=== PATIENT | female | born 1965 | race Caucasian/White ===

== ENCOUNTER 2018-12-03 21:03 | Emergency (ER) | payer SELFPAY ==
[~2018-12-03] VITALS: Ht 149.9 cm; Wt 47.6 kg
--- NOTE | 2018-12-03 21:45 | NUR ---
PT BIBSELF C/C "HAVE NOSEBLEED X7HRS" -N/V -DIZZY -ACUTE DISTRESS. -TRAUMA. PT BLEW HER NOSE AND STARTED TO BLEED. PT AOX4. NAD NOTED. RESP EVEN AND UNLABORED. PT ON MONITOR IN BED 10. WILL CONTINUE TO MONITOR.
--- NOTE | 2018-12-03 21:48 | NUR ---
FAMILY AT BEDSIDE
--- NOTE | 2018-12-03 22:03 | NUR ---
PHLEB AT BEDSIDE FOR BLOOD DRAW
[2018-12-03 22:16] LABS: BASOPHILS % (AUTO) 0.6 % (0.0-2.0); EOSINOPHILS % (AUTO) 2.5 % (0.0-6.0); HEMATOCRIT 37 % (33-45); HEMOGLOBIN 12.2 g/dL (11.5-14.8); LYMPHOCYTES # (AUTO) 2.6 /CMM (0.8-4.8); LYMPHOCYTES % (AUTO) 41.8 % (20.0-44.0); MEAN CORPUSCULAR HGB CONC 33 g/dl (31.0-36.0); MEAN CORPUSCULAR VOLUME 95 fL (82-100); MONOCYTES # (AUTO) 0.5 /CMM (0.1-1.30); MONOCYTES % (AUTO) 7.3 % (2.0-12.0); NEUTROPHILS % (AUTO) 47.8 % (43.0-81.0); PLATELET COUNT (AUTO) 355 /CMM (150-450); RED BLOOD CELL COUNT(AUTO) 3.83 MIL/uL (4.0-5.2); WHITE BLOOD COUNT (AUTO) 6.3 K/uL (4.3-11.0)
[2018-12-03 22:27] LABS: CALCIUM, SERUM 9.1 mg/dL (8.5-10.1); CREATININE 0.7 mg/dL (0.6-1.3); POTASSIUM 3.5 mmol/L (3.5-5.1)
[2018-12-03 22:57] VITALS: BP 146/94
[2018-12-03] MEDS ORDERED: OXYMETAZOLINE HCL NASAL SPRAY 30 ML BOTTLE NS ONE ×2 (22:58→23:00)
[2018-12-03] MEDS ORDERED: SILVER NITRATE APPLICATOR 1 EA BOX ONE (23:01)
--- NOTE | 2018-12-04 00:03 | NUR ---
Patient discharged to home in stable condition. Written and verbal after care instructions given. Patient verbalizes understanding of instruction. PT AMBULATORY WITH STEADY GAIT.
== END 2018-12-04 00:05 | disposition home or self-care (01) ==
LOC: ER 21:08
DX: R04.0 Epistaxis (principal)
CPT/HCPCS: 30901; 36415; 80048; 85025; 85730; 99284; A4606

== ENCOUNTER 2018-12-20 16:25 | Emergency (ER) | payer BC ==
[~2018-12-20] VITALS: Ht 160 cm; Wt 64.4 kg
--- NOTE | 2018-12-20 16:40 | NUR ---
PT AMBULATED TO ER18 CH2 WITH A STEADY GAIT. PT IS C/O UPPER BACK PAIN THAT IS CHRONIC, BUT FLARING UP TODAY. PT TRIED ACCUPUNCTURE, MASSAGE, MOTRIN, CBD WITHOUT RELIEF.
[2018-12-20 17:08] VITALS: BP 154/78
--- NOTE | 2018-12-20 17:11 | NUR ---
PT WAS MOVED TO ER 16
[2018-12-20] MEDS ORDERED: HYDROCODONE/APAP 5/325MG 1 EACH TABLET PO ONE (17:30)
[2018-12-20] MEDS ORDERED: HYDROCODONE/APAP 5/325MG 1 EACH TABLET ONE (17:34)
== END 2018-12-20 17:38 | disposition home or self-care (01) ==
LOC: ER 16:26
DX: S29.012A Strain of muscle and tendon of back wall of thorax, initial encounter (principal); G89.29 Other chronic pain; X58.XXXA Exposure to other specified factors, initial encounter; Y93.89 Activity, other specified; Y92.89 Other specified places as the place of occurrence of the external cause; Y99.8 Other external cause status

== ENCOUNTER 2020-02-03 23:50 | Emergency (ER) | payer BC ==
[~2020-02-03] VITALS: Ht 149.9 cm; Wt 51.7 kg
[2020-02-03 23:54] VITALS: BP 148/81
--- NOTE | 2020-02-03 23:55 | NUR ---
PT BIBRA FROM HOME AFTER INGESTING ONE SHOT OF RUBBING ALCOHOL. PT DENIES SI/HI AT THIS TIME. PT AWAKE. AAOX4. VITAL SIGNS STABLE. RESPIRATIONS EVEN AND UNLABORED. SKIN INTACT. AMBULATORY WITH STEADY GAIT. NO ACUTE DISTRESS NOTED AT THIS TIME.
--- NOTE | 2020-02-04 00:15 | NUR ---
Elder du in [facility] - 02/04/20 at 0028 by PA MD AT THE BED SIDE
--- NOTE | 2020-02-04 00:18 | NUR ---
Patient eloped from facility. ER MD notified.
== END 2020-02-04 00:30 | disposition left against medical advice (07) ==
LOC: ER 23:51
DX: Z53.21 Procedure and treatment not carried out due to patient leaving prior to being seen by health care provider (principal); G43.909 Migraine, unspecified, not intractable, without status migrainosus; M19.90 Unspecified osteoarthritis, unspecified site

== ENCOUNTER 2020-02-04 12:07 | Emergency (ER) | payer BC ==
[~2020-02-04] VITALS: Ht 149.9 cm; Wt 48.1 kg
--- NOTE | 2020-02-04 12:26 | NUR ---
BIBS FROM HOME TO ER BED 16. AAOX4. NOT IN RESP DISTRESS. AMBULATORY. CAME IN FOR ACCIDENTAL INGESTION OF RUBBING ALCOHOL LAST NIGHT. SHE REPORTS THAT IT WAS ABOUT MUCH A SHOT GLASS. PER PT, SHE HAVE A SMALL CUP OF RUBBING ALCOHOL WHICH SHE ACIDENTAL PICKED UP AND DRANSK BECAUSE SHE THOUGHT IS WAS HER DRINK. DENIES SI NOT HI. C/O OF SORE THROAT. WAS AT BEDSIDE FOR EVAL. AWAITING ORDERS
[2020-02-04 12:43] LABS: BASOPHILS % (AUTO) 0.5 % (0.0-2.0); EOSINOPHILS % (AUTO) 3.4 % (0.0-6.0); HEMATOCRIT 44 % (33-45); HEMOGLOBIN 14.3 g/dL (11.5-14.8); LYMPHOCYTES # (AUTO) 2.3 /CMM (0.8-4.8); LYMPHOCYTES % (AUTO) 42.5 % (20.0-44.0); MEAN CORPUSCULAR HGB CONC 33 g/dl (31.0-36.0); MEAN CORPUSCULAR VOLUME 95 fL (82-100); MONOCYTES # (AUTO) 0.5 /CMM (0.1-1.30); MONOCYTES % (AUTO) 8.4 % (2.0-12.0); NEUTROPHILS # (AUTO) 2.4 /CMM (1.8-8.9); NEUTROPHILS % (AUTO) 45.2 % (43.0-81.0); PLATELET COUNT (AUTO) 338 /CMM (150-450); RED BLOOD CELL COUNT(AUTO) 4.64 MIL/uL (4.0-5.2); WHITE BLOOD COUNT (AUTO) 5.4 K/uL (4.3-11.0)
[2020-02-04 12:48] LABS: CALCIUM, SERUM 9.2 mg/dL (8.5-10.1); CREATININE 0.9 mg/dL (0.6-1.3); POTASSIUM 4.2 mmol/L (3.5-5.1)
[2020-02-04 12:53] LABS: APPEARANCE,URINE Clear (CLEAR); BILIRUBIN,URINE Negative (NEGATIVE); BLOOD, URINE Negative Ery/uL (NEGATIVE); COLOR,URINE Yellow (YELLOW); KETONES,URINE Negative (NEGATIVE); LEUKOCYTE ESTERASE ,URINE Negative (NEGATIVE); NITRITE, URINE Negative (NEGATIVE); PROTEIN,URINE Negative (NEGATIVE); UGLUCOSE Negative (NEGATIVE)
[2020-02-04 12:55] LABS: ALBUMIN 3.7 g/dL (3.4-5.0); BILIRUBIN,DIRECT 0.1 mg/dL (0.0-0.2); BILIRUBIN,TOTAL 0.2 mg/dL (0.2-1.0); TOTAL PROTEIN, SERUM 8.2 g/dL (6.4-8.2)
[2020-02-04 13:08] LABS: BACTERIA,URINE None seen /HPF (None Seen); RBC,URINE 0-2 /HPF (0-2); SQUAMOUS EPITHELIAL CELL,UR Few /HPF (None Seen); WBC,URINE 0-2 /HPF (0-3)
[2020-02-04] MEDS ORDERED: LIDOCAINE VISCOUS 2% UD 15 ML UDC ONE (13:13)
[2020-02-04 13:17] LABS: ACETAMINOPHEN 0 ug/ml (10-30); ALCOHOL, BLOOD < 3 mg/dL (0-0); SALICYLATE 1.5 mg/dL (2.8-20.0)
--- NOTE | 2020-02-04 13:20 | NUR ---
Patient discharged to home in stable condition. Written and verbal after care instructions given. Patient verbalizes understanding of instruction. Pt ambulatory with a steady gait
[2020-02-04 13:21] VITALS: BP 145/72
[2020-02-04] MEDS ORDERED: LIDOCAINE VISCOUS 2% UD 15 ML UDC MM ONE (13:30)
== END 2020-02-04 13:22 | disposition home or self-care (01) ==
LOC: ER 12:07
DX: Z72.89 Other problems related to lifestyle (principal); G43.909 Migraine, unspecified, not intractable, without status migrainosus; M19.90 Unspecified osteoarthritis, unspecified site; Z60.2 Problems related to living alone
CPT/HCPCS: 36415; 80048; 80076; 80307; 80329; 81001; 83690; 85025; 99283; G0480; 81000-TC

== ENCOUNTER 2021-06-07 21:55 | Emergency (ER) | payer MEDICAID ==
[~2021-06-07] VITALS: Ht 149.9 cm; Wt 48.1 kg
--- NOTE | 2021-06-07 22:10 | NUR ---
AMY C/O SUICIDAL IDEATION. 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 PT TEXTED NEIGHBORS SAYING SHE WAS GOING TO KILL HERSELF. PT A/OX3. PLACED ON SITTER; SAFETY PRECAUTIONS TAKED. CHANGED PT INTO PT GOWN. PT NOTED WITH LACERATIONS TO WRISTS; NO ACTIVED BLEEDING NOTED.
[2021-06-07] MEDS ORDERED: HALOPERIDOL LACTATE INJ 5 MG/ML VIAL IM ONE (23:00)
[2021-06-07] MEDS ORDERED: diphenhydrAMINE HCL 50 MG/ML VIAL IM ONE (23:00)
--- NOTE | 2021-06-07 23:40 | NUR ---
URINE COLLECTED AND SENT TO LAB
[2021-06-07] MEDS ORDERED: diphenhydrAMINE HCL 50 MG/ML VIAL ONE (23:49)
[2021-06-07] MEDS ORDERED: HALOPERIDOL LACTATE INJ 5 MG/ML VIAL ONE (23:49)
[2021-06-07 23:54] LABS: BILIRUBIN,URINE Negative (NEGATIVE); COLOR,URINE YELLOW (YELLOW); LEUKOCYTE ESTERASE ,URINE Negative (NEGATIVE); NITRITE, URINE Negative (NEGATIVE); PROTEIN,URINE Negative (NEGATIVE); UGLUCOSE Negative (NEGATIVE); UROBILINOGEN,URINE 0.2 EU/dL (0.2)
[2021-06-08] MEDS ORDERED: HALOPERIDOL LACTATE INJ 5 MG/ML VIAL ONE (00:20)
[2021-06-08] MEDS ORDERED: HALOPERIDOL LACTATE INJ 5 MG/ML VIAL IM ONE (00:30)
[2021-06-08 03:10] LABS: BASOPHILS % (AUTO) 0.3 % (0.0-2.0); EOSINOPHILS % (AUTO) 1.8 % (0.0-6.0); HEMATOCRIT 39 % (33-45); HEMOGLOBIN 13.1 g/dL (11.5-14.8); LYMPHOCYTES # (AUTO) 1.2 K/uL (0.8-4.8); MEAN CORPUSCULAR HGB CONC 34 g/dl (31.0-36.0); MEAN CORPUSCULAR VOLUME 96 fL (82-100); MONOCYTES # (AUTO) 0.5 K/uL (0.1-1.30); MONOCYTES % (AUTO) 6.8 % (2.0-12.0); NEUTROPHILS # (AUTO) 5.9 K/uL (1.8-8.9); NEUTROPHILS % (AUTO) 75.1 % (43.0-81.0); PLATELET COUNT (AUTO) 285 K/uL (150-450); RED BLOOD CELL COUNT(AUTO) 4.08 MIL/uL (4.0-5.2); WHITE BLOOD COUNT (AUTO) 7.8 K/uL (4.3-11.0)
[2021-06-08] MEDS ORDERED: TDAP [DIPH/PERTUSSIS/TET] 0.5 ML VIAL IM ONE (03:30)
[2021-06-08 03:41] LABS: CALCIUM, SERUM 8.8 mg/dL (8.5-10.1); CARBON DIOXIDE 26 mmol/L (21-32); CHLORIDE 105 mmol/L (98-107); CREATININE 0.8 mg/dL (0.6-1.3); GLUCOSE 85 mg/dL (74-106); POTASSIUM 3.2 mmol/L (3.5-5.1); SODIUM SERUM 142 mmol/L (136-145); UREA NITROGEN, BLOOD 14 mg/dL (7-18)
[2021-06-08 03:47] LABS: ALANINE AMINOTRANSFERASE 30 U/L (12-78); ALBUMIN 4.1 g/dL (3.4-5.0); ALCOHOL, BLOOD 37 mg/dL (0-0); ALKALINE PHOSPHATASE 68 U/L (46-116); ASPARTATE AMINOTRANSFERASE 40 U/L (15-37); BILIRUBIN,DIRECT 0.2 mg/dL (0.0-0.2); BILIRUBIN,TOTAL 0.6 mg/dL (0.2-1.0)
[2021-06-08 03:53] LABS: ACETAMINOPHEN < 2 ug/ml (10-30)
[2021-06-08] MEDS ORDERED: POTASSIUM CHLORIDE 20 MEQ TAB.PRT.SR PO ONE ×2 (07:00→07:32)
--- NOTE | 2021-06-08 12:26 | NUR ---
Art AUTOMOTIVE PORTER at bedside for eval.
--- NOTE | 2021-06-08 12:30 | NUR ---
art at bedside and broke the 5150 hold. notified and aware.
--- NOTE | 2021-06-08 12:31 | NUR ---
Patient verbalized 'i am stupid i am not suicidal". MD notifed and aware.
--- NOTE | 2021-06-08 14:09 | NUR ---
Patient discharged to home in stable condition. Written and verbal after care instructions given. Patient verbalizes understanding of instruction.
[2021-06-08 14:10] VITALS: BP 118/71
== END 2021-06-08 14:10 | disposition home or self-care (01) ==
LOC: ER 21:57
DX: S61.511A Laceration without foreign body of right wrist, initial encounter (principal); S61.512A Laceration without foreign body of left wrist, initial encounter; R45.851 Suicidal ideations; F10.129 Alcohol abuse with intoxication, unspecified; R45.1 Restlessness and agitation; G43.909 Migraine, unspecified, not intractable, without status migrainosus; M19.90 Unspecified osteoarthritis, unspecified site; Z60.2 Problems related to living alone; Y90.1 Blood alcohol level of 20-39 mg/100 ml; X78.8XXA Intentional self-harm by other sharp object, initial encounter; Y93.89 Activity, other specified; Y92.89 Other specified places as the place of occurrence of the external cause; Y99.8 Other external cause status
CPT/HCPCS: 36415; 80048; 80076; 80143; 80307; 80320; 81003; 84484; 84703; 85025; 96372 ×2; 99291; J1200; J1630 ×2; G0480

== ENCOUNTER 2021-09-30 14:05 | Emergency (ER) | payer MEDICAID ==
[~2021-09-30] VITALS: Ht 149.9 cm; Wt 48.1 kg
[2021-09-30 14:39] VITALS: BP 128/98
[2021-09-30] MEDS ORDERED: IBUPROFEN 600 MG TABLET PO ONE (15:30)
[2021-09-30] MEDS ORDERED: CYCLOBENZAPRINE 10 MG TABLET PO ONE (15:30)
[2021-09-30] MEDS ORDERED: IBUPROFEN 600 MG TABLET ONE (15:39)
[2021-09-30] MEDS ORDERED: CYCLOBENZAPRINE 10 MG TABLET ONE (15:39)
[2021-09-30] MEDS ORDERED: IBUP-1957 PO (15:53)
[2021-09-30] MEDS ORDERED: METH-647 PO (15:53)
--- NOTE | 2021-09-30 15:58 | NUR ---
Patient discharged to home in stable condition. Written and verbal after care instructions given. Patient verbalizes understanding of instruction.
== END 2021-09-30 15:59 | disposition home or self-care (01) ==
LOC: ER 14:12
DX: G89.29 Other chronic pain (principal); M79.651 Pain in right thigh; M54.6 Pain in thoracic spine; G43.909 Migraine, unspecified, not intractable, without status migrainosus; M19.90 Unspecified osteoarthritis, unspecified site; F32.9 Major depressive disorder, single episode, unspecified; Z86.59 Personal history of other mental and behavioral disorders; Z81.1 Family history of alcohol abuse and dependence; Z60.2 Problems related to living alone
CPT/HCPCS: 72131-TC

== ENCOUNTER 2022-09-18 00:03 | Emergency (ER) | payer MEDICAID ==
[~2022-09-18 00:03] MED LIST: IBUP-1957 PO; METH-647 PO
--- NOTE | 2022-09-18 00:15 | NUR ---
DISHA CALLED TO [facility]IGE NO ANSWER
--- NOTE | 2022-09-18 00:32 | NUR ---
PATIENT NOT IN WAITING ROOM
== END 2022-09-18 00:33 | disposition left against medical advice (07) ==
LOC: ER 00:04
DX: Z53.21 Procedure and treatment not carried out due to patient leaving prior to being seen by health care provider (principal)